=== PATIENT | male | born 1965 | race American Indian/Alaskan Native ===

== ENCOUNTER 2017-04-02 18:47 | Emergency (ER) | payer BC ==
[2017-04-02 19:03] VITALS: RESP 18
[2017-04-02] MEDS ORDERED: Sodium Chloride 0.9% 1,000 ML IV ONE (19:20)
[2017-04-02] MEDS ORDERED: Sodium Chloride 0.9% 250 ML IV ONE (19:43)
[2017-04-02 19:47] LABS: BASO % 0.6 % (0.0-2.0); EOS # 0.2 K/uL (0.0-0.7); EOS % 2.5 % (0.0-4.0); HEMATOCRIT 38.4 % (35.0-51.0); LYMPH # 1.4 K/uL (1.0-4.3); LYMPH % 22.7 % (20.0-40.0); MEAN CELL VOLUME 97.4 fL (80.0-94.0); MEAN CORPUSCULAR HEMOGLOBIN 31.4 pg (27.0-31.0); MEAN CORPUSCULAR HGB CONC 32.2 g/dL (33.0-37.0); MEAN PLATELET VOLUME 7.3 fL (7.2-11.7); MONO # 0.7 K/uL (0.0-0.8); MONO % 11.5 % (0.0-10.0); NRBC % 0.1 % (0.0-2.0); RED CELL DISTRIBUTION WIDTH 14.3 % (11.5-14.5); WHITE BLOOD COUNT 6.4 K/uL (4.8-10.8)
[2017-04-02 20:11] LABS: BLOOD UREA NITROGEN 10 mg/dL (9-20); CHLORIDE 96 mmol/L (98-107); GFR AFRICAN-AMERICAN > 60; GLUCOSE,RANDOM 78 mg/dL (75-110); POTASSIUM 3.5 mmol/L (3.6-5.2); SODIUM 133 mmol/L (132-148)
[2017-04-02 20:12] LABS: ALB/GLOB RATIO 1.8 (1.0-2.1); ALKALINE PHOSPHATASE 86 U/L (38-126); ALT/SGPT 50 U/L (21-72); AST/SGOT 143 U/L (17-59); BILIRUBIN,TOTAL 0.7 mg/dL (0.2-1.3); CARBON DIOXIDE 13 mmol/L (22-30); MAGNESIUM 1.6 mg/dL (1.6-2.3); TOTAL PROTEIN 7.6 g/dL (6.3-8.3)
[2017-04-02] MEDS ORDERED: Potassium Chloride 20 mEq ER Tab PO STA (20:40)
[2017-04-02] MEDS ORDERED: Potassium Chloride 20 mEq ER Tab PO ONE (20:45)
--- NOTE | 2017-04-02 21:49 | C.PDOC ---
Time Seen by Provider: 04/02/17 19:09 Chief Complaint (Nursing): Seizure History Per: Patient, EMS Recent Seizure Activity Began: Just Before Arrival Number Of Seizures: One Length Of Seizures (Duration): Unknown Quality Of Seizure: Generalized Precipitating Factor(s): None Associated Symptoms: Incontinence Of Urine Post-ictal Period: Duration Unknown Severity: Moderate Additional History Per: Prior Records Past Medical History Reviewed: Historical Data, Nursing Documentation, Vital Signs Vital Signs: Last Vital Signs Temp 98 F 04/02/17 20:34 Pulse 76 04/02/17 20:34 Resp 18 04/02/17 20:34 BP 145/86 04/02/17 20:34 Pulse Ox 100 04/02/17 20:34 - Medical History PMH: HTN, Seizures Family History: States: Unknown Family Hx - Social History Hx Alcohol Use: Yes Hx Substance Use: No - Immunization History Hx Tetanus Toxoid Vaccination: No Hx Influenza Vaccination: No Hx Pneumococcal Vaccination: No Review Of Systems Constitutional: Negative for: Fever Cardiovascular: Negative for: Chest Pain Respiratory: Negative for: Shortness of Breath Gastrointestinal: Positive for: Nausea. Negative for: Vomiting, Abdominal Pain Musculoskeletal: Negative for: Neck Pain Skin: Negative for: Rash Neurological: Negative for: Weakness, Numbness Physical Exam - Physical Exam Appears: No Acute Distress, Other Skin: Normal Color, Warm, Dry Head: Atraumatic, Normacephalic Eye(s): bilateral: PERRL, EOMI Neck: Normal ROM, No Midline Cervical Tenderness, No Step Off Deformity, Supple Cardiovascular: Rhythm Regular Respiratory: Normal Breath Sounds, No Accessory Muscle Use Gastrointestinal/Abdominal: Soft, No Tenderness Extremity: Normal ROM, No Deformity Neurological/Psych: Oriented x3, Normal Motor, Normal Sensation ED Course And Treatment - Laboratory Results Result Diagrams: 04/02/17 19:42 04/02/17 19:42 O2 Sat by Pulse Oximetry: 100 Pulse Ox Interpretation: Normal Progress Note: Pt states he has an appointment for an outpt MRI tomorrow. Reassessment Condition: Improved Progress - Interventions Interventions:: Observation, Intravenous fluid - Medications Administered Oral: Other (Keppra, KCl) Intravenous: Other (Ativan) - Data Reviewed Data Reviewed: Lab, Old records - Patient Status Patient status: Mostly improved - Continuity of Care Discussed patient case with:: Patient, Family-HIPPA compliant, ED Nurse - Patient Plan Patient Plan: Discharge, F/U with PCP, Continue present meds Disposition Counseled Patient/Family Regarding: Studies Performed, Diagnosis, Need For Followup - Disposition Disposition: HOME/ ROUTINE Disposition Time: 21:50 Condition: IMPROVED Additional Instructions: Take your medication as prescribed. Get plenty of sleep. Avoid alcohol. Follow up for the MRI tomorrow. Return to the ER if you develop another seizure, worsening of symptoms or if you have any other concerns. Instructions: Recurrent Seizures in Adults (ED) - Clinical Impression Clinical Impression: Seizure
[2017-04-02 21:58] VITALS: BP 140/92; PULSE 82; TEMP 98.4; O2SAT 98
== END 2017-04-02 22:17 | disposition home or self-care (01) ==
LOC: C.ER 18:47
DX: R56.9 Unspecified convulsions (principal); I10 Essential (primary) hypertension
CPT/HCPCS: 80053; 82948; 83735; 85025; 96361; 96374; 99285; J2060; J7040

== ENCOUNTER 2017-08-02 09:08 | Emergency (ER) | payer BC ==
[2017-08-02 09:24] VITALS: BMI 19.3
[2017-08-02 09:28] VITALS: TEMP 98
[2017-08-02 09:41] VITALS: RESP 16
[2017-08-02] MEDS ORDERED: Alum-Mag Hydrox-Simethicone Susp (30 mL) PO STA (09:48)
[2017-08-02 09:56] LABS: BASO % 0.7 % (0.0-2.0); EOS # 0.1 K/uL (0.0-0.7); EOS % 2.6 % (0.0-4.0); HEMOGLOBIN 12.9 g/dL (12.0-18.0); LYMPH # 0.8 K/uL (1.0-4.3); MEAN CORPUSCULAR HEMOGLOBIN 31.4 pg (27.0-31.0); MEAN CORPUSCULAR HGB CONC 34.2 g/dL (33.0-37.0); MEAN PLATELET VOLUME 7.1 fL (7.2-11.7); MONO # 0.5 K/uL (0.0-0.8); NEUT % 72.7 % (50.0-75.0); RBC 4.1 Mil/uL (4.40-5.90); RED CELL DISTRIBUTION WIDTH 14.5 % (11.5-14.5); WHITE BLOOD COUNT 5.5 K/uL (4.8-10.8)
--- NOTE | 2017-08-02 09:56 | C.PDOC ---
History Of Present Illness 52 y/o M c PMHx epilepsy p/w nausea and NBNB vomiting since last night, acid taste in mouth, numbness of both legs and arms. Patient states these symptoms are typical when he is going to have a seizure. He denies seizure since yesterday. He denies fever, chills, chest pain, abdominal pain, dyspnea, dysuria , diarrhea, rash. Time Seen by Provider: 08/02/17 09:34 Chief Complaint (Nursing): Seizure Past Medical History Vital Signs: Last Vital Signs Temp 98.0 F 08/02/17 09:20 Pulse 67 08/02/17 11:17 Resp 16 08/02/17 11:17 BP 166/107 H 08/02/17 11:17 Pulse Ox 100 08/02/17 11:17 - Medical History PMH: HTN, Seizures Family History: States: Unknown Family Hx - Social History Hx Alcohol Use: Yes Hx Substance Use: No - Immunization History Hx Tetanus Toxoid Vaccination: No Hx Influenza Vaccination: No Hx Pneumococcal Vaccination: No Review Of Systems Except As Marked, All Systems Reviewed And Found Negative. Constitutional: Negative for: Fever Cardiovascular: Negative for: Chest Pain Physical Exam - Physical Exam Additional Physical Exam Comments: Gen: NAD Head: NC Eyes: No scleral icterus ENT: MMM Neck: No rigidity Chest: No tenderness CV: Regular rate Lungs: CTA b/l Abd: Soft, NT Back: Bilateral lumbar tenderness Skin: No rash Neuro: Alert, no focal deficit. Sensation to light touch intact x 4. Motor 5/5 x 4. ED Course And Treatment - Laboratory Results Result Diagrams: 08/02/17 09:52 08/02/17 09:52 O2 Sat by Pulse Oximetry: 99 Medical Decision Making Medical Decision Making: Patient in no distress. No seizure activity. Labs unremarkable. CXR no consolidation. Will discharge home, f/u PMD, return to ED for worsening pain, fever, dyspnea, vomiting, or any other problem. Disposition - Disposition Referrals: Caitlyn Lockhart [Medical Doctor] - Disposition: HOME/ ROUTINE Disposition Time: 11:46 Condition: STABLE Instructions: Epilepsy in Adults Forms: [facility] ([place]) - Clinical Impression Clinical Impression: Nausea
[2017-08-02 10:00] LABS: MEAN CELL VOLUME 91.8 fL (80.0-94.0)
[2017-08-02 10:11] LABS: ALB/GLOB RATIO 1.4 (1.0-2.1); ALBUMIN 4.5 g/dL (3.5-5.0); ALT/SGPT 37 U/L (21-72); AST/SGOT 76 U/L (17-59); BLOOD UREA NITROGEN 10 mg/dL (9-20); CALCIUM 9.6 mg/dl (8.6-10.4); GFR AFRICAN-AMERICAN > 60; GFR NON-AFRICAN AMERICAN > 60; LIPASE 77 U/L (23-300)
[2017-08-02] MEDS ORDERED: Aluminum Hydroxide/Magnesium Hydroxide Susp (30 mL) ONE (10:30)
[2017-08-02 10:43] LABS: SQUAMOUS EPITHIAL 1 /hpf (0-5); URINE BILIRUBIN NEGATIVE (NEGATIVE); URINE BLOOD NEGATIVE (NEGATIVE); URINE CLARITY Clear (Clear); URINE COLOR Yellow (YELLOW); URINE GLUCOSE (UA) NORMAL (Normal); URINE LEUKOCYTE ESTERASE NEG Leu/uL (Negative); URINE NITRATE NEGATIVE (NEGATIVE); URINE PROTEIN NEGATIVE (NEGATIVE); URINE UROBILINOGEN NORMAL mg/dL (0.2-1.0)
[2017-08-02 11:18] VITALS: BP 166/107; PULSE 67
--- NOTE | 2017-08-02 11:33 | RAD ---
HISTORY: nausea COMPARISON: None available. TECHNIQUE: Chest, one view. FINDINGS: LUNGS: No focal consolidation. Please note that chest x-ray has limited sensitivity for the detection of pulmonary masses. PLEURA: No significant pleural effusion identified. No definite pneumothorax . CARDIOVASCULAR: The cardiomediastinal silhouette appears within normal limits of size. OSSEOUS STRUCTURES: Irregularity of the acromion appears chronic. VISUALIZED UPPER ABDOMEN: Unremarkable. OTHER FINDINGS: None. IMPRESSION: No focal consolidation identified. Findings as above.
[2017-08-02 11:48] VITALS: O2SAT 99
== END 2017-08-02 12:06 | disposition home or self-care (01) ==
LOC: C.ER 09:08
DX: R11.2 Nausea with vomiting, unspecified (principal); I10 Essential (primary) hypertension